=== PATIENT | male | born 1970 | race Two or more races ===

== ENCOUNTER 2020-01-21 19:19 | Emergency (ER) | payer MEDICARE ==
[~2020-01-21] VITALS: Ht 170.2 cm; Wt 95.5 kg
[2020-01-21 20:39] LABS: BASOPHILS % (AUTO) 0.7 % (0.0-2.0); EOSINOPHILS % (AUTO) 4.7 % (1.0-6.0); HEMATOCRIT 46.8 % (41-53); HEMOGLOBIN 15.8 g/dL (13.5-17.5); LYMPHOCYTES # (AUTO) 3.2 K/uL (1.0-4.8); LYMPHOCYTES % (AUTO) 35.1 % (22.0-44.0); MEAN CORPUSCULAR HEMOGLOBIN 30.4 pg (26.0-34.0); MEAN CORPUSCULAR HGB CONC 33.7 G/dL (31.0-37.0); MEAN CORPUSCULAR VOLUME 90 fL (80-100); MONOCYTES # (AUTO) 0.4 K/uL (0.1-1.0); MONOCYTES % (AUTO) 4.4 % (2.0-9.0); NEUTROPHILS # (AUTO) 5.1 K/uL (1.8-7.7); NEUTROPHILS % (AUTO) 55.1 % (40.0-70.0); PLATELET COUNT (AUTO) 404 K/uL (150-450); RED BLOOD CELL COUNT(AUTO) 5.18 MIL/uL (4.50-5.90)
[2020-01-21 20:52] LABS: ANION GAP 11 mmol/L (8-16); CALCIUM, TOTAL 9.7 mg/dL (8.8-10.5); CARBON DIOXIDE 27 mmol/L (22-29); CHLORIDE 103 mmol/L (98-107); CREATININE 0.96 mg/dL (0.60-1.30); GLOMERULAR FILTR. RATE CALC > 60 mL/min (>60); GLUCOSE,RANDOM 116 mg/dL (70-110); POTASSIUM 3.8 mmol/L (3.5-5.1); SODIUM SERUM 141 mmol/L (136-145); UREA NITROGEN, BLOOD 9 mg/dL (7-18)
[2020-01-21 20:58] LABS: ALANINE AMINOTRANSFERASE 50 U/L (12-78); ALBUMIN 4.3 g/dL (3.4-5.0); ALKALINE PHOSPHATASE 108 U/L (46-116); ASPARTATE AMINOTRANSFERASE 22 U/L (15-37); BILIRUBIN,TOTAL 0.3 mg/dL (0.1-1.0); TOTAL PROTEIN, SERUM 8.5 g/dL (6.4-8.2)
[2020-01-21 22:20] VITALS: BP 134/77
== END 2020-01-22 01:35 | disposition home or self-care (01) ==
LOC: EMS 19:22
DX: R46.89 Other symptoms and signs involving appearance and behavior (principal)
CPT/HCPCS: 36415; 80053; 85025; 99285; G0480

== ENCOUNTER 2020-07-21 09:15 | Inpatient (IN) | payer BC, MEDICARE ==
[~2020-07-21] VITALS: Ht 170.2 cm; Wt 107.5 kg
[2020-07-21] MEDS ORDERED: ZOLPIDEM TARTRATE 10 MG TABLET PO PRN (10:45)
[2020-07-21 12:18] LABS: AMPHET/METH SCREEN,URINE NEGATIVE (NEGATIVE); BARBITURATE SCREEN, URINE NEGATIVE (NEGATIVE); BENZODIAZEPINES SCREEN,URINE NEGATIVE (NEGATIVE); CANNABINOID SCREEN,URINE POSITIVE (NEGATIVE); COCAINE SCREEN,URINE NEGATIVE (NEGATIVE); METHADONE SCREEN, URINE NEGATIVE (NEGATIVE); OPIATE SCREEN,URINE NEGATIVE (NEGATIVE)
[2020-07-21 12:20] LABS: PHENCYCLIDINE SCREEN,URINE NEGATIVE (NEGATIVE)
[2020-07-21] MEDS ORDERED: ACETAMINOPHEN 325 MG TABLET PO ONE (23:45)
[2020-07-22 05:20] LABS: BASOPHILS % (AUTO) 0.5 % (0.0-2.0); HEMOGLOBIN 14.2 g/dL (13.5-17.5); LYMPHOCYTES # (AUTO) 2.1 K/uL (1.0-4.8); LYMPHOCYTES % (AUTO) 28.5 % (22.0-44.0); MEAN CORPUSCULAR HEMOGLOBIN 31.5 pg (26.0-34.0); MEAN CORPUSCULAR HGB CONC 34.6 G/dL (31.0-37.0); MEAN CORPUSCULAR VOLUME 91 fL (80-100); MONOCYTES # (AUTO) 0.4 K/uL (0.1-1.0); MONOCYTES % (AUTO) 5.6 % (2.0-9.0); NEUTROPHILS # (AUTO) 4.7 K/uL (1.8-7.7); NEUTROPHILS % (AUTO) 62.4 % (40.0-70.0); PLATELET COUNT (AUTO) 300 K/uL (150-450); RED BLOOD CELL COUNT(AUTO) 4.51 MIL/uL (4.50-5.90); RED CELL DISTRIBUTION WIDTH 13.5 % (11.5-14.5)
[2020-07-22 05:46] LABS: ALANINE AMINOTRANSFERASE 39 U/L (12-78); ALBUMIN 3.9 g/dL (3.4-5.0); ALKALINE PHOSPHATASE 71 U/L (46-116); ANION GAP 7 mmol/L (8-16); ASPARTATE AMINOTRANSFERASE 24 U/L (15-37); BILIRUBIN,TOTAL 0.6 mg/dL (0.1-1.0); CALCIUM, TOTAL 9.3 mg/dL (8.8-10.5); CARBON DIOXIDE 28 mmol/L (22-29); CHLORIDE 102 mmol/L (98-107); CREATININE 0.79 mg/dL (0.60-1.30); FREE T4 (FREE THYROXINE) 1.22 ng/dL (0.76-1.46); GLOMERULAR FILTR. RATE CALC > 60 mL/min (>60); GLUCOSE,RANDOM 132 mg/dL (70-110); POTASSIUM 3.9 mmol/L (3.5-5.1); SODIUM SERUM 137 mmol/L (136-145); THYROID STIMULATING HORMONE 1.27 uIU/mL (0.36-3.74); TOTAL PROTEIN, SERUM 7.6 g/dL (6.4-8.2); UREA NITROGEN, BLOOD 11 mg/dL (7-18)
[2020-07-22] MEDS ORDERED: LOPERAMIDE HCL 2 MG CAPSULE PO PRN (07:30)
[2020-07-22] MEDS ORDERED: CloNIDine HCL 0.1 MG TABLET PO PRN (07:30)
[2020-07-22] MEDS ORDERED: ALBUTEROL SULFATE HFA 90 MCG/PUFF 8 GM INHALER IH PRN (07:30)
[2020-07-22] MEDS ORDERED: PETROLATUM,WHITE 28 GM JELLY TP PRN (07:30)
[2020-07-22] MEDS ORDERED: ONDANSETRON HCL 4 MG TABLET PO PRN (07:30)
[2020-07-22] MEDS ORDERED: BENZOCAINE/MENTHOL LOZENGE PO PRN (07:30)
[2020-07-22] MEDS ORDERED: BACITRACIN 28 GM OINTMENT TP PRN (07:30)
[2020-07-22] MEDS ORDERED: MAGNESIUM HYDROXIDE SUSPENSION 30 ML UDCUP PO PRN (07:30)
[2020-07-22] MEDS ORDERED: CYCLOBENZAPRINE HCL 10 MG TABLET PO ONE (08:00)
[2020-07-22] MEDS ORDERED: LIDOCAINE 5% TRANSDERMAL PATCH TD ONE (08:00)
[2020-07-22 16:29] VITALS: BP 143/92
[2020-07-22] MEDS: LORazepam 2 MG TABLET PO PRN ×2 (16:44→22:04)
[2020-07-22] MEDS: HALOPERIDOL 5 MG TABLET PO PRN ×2 (16:44→22:04)
[2020-07-23 02:22] VITALS: BP 133/89
[2020-07-23] MEDS: IBUPROFEN 600 MG TABLET PO PRN ×2 (08:10→09:01)
[2020-07-23 08:12] VITALS: BP 112/73
[2020-07-23] MEDS: LORazepam 2 MG TABLET PO PRN ×3 (08:16→20:43)
[2020-07-23 16:06] VITALS: BP 118/66
[2020-07-23 16:33] VITALS: BP 118/66
[2020-07-23] MEDS: ACETAMINOPHEN 325 MG TABLET PO PRN ×2 (16:33→20:42)
[2020-07-23] MEDS: DOCUSATE SODIUM 100 MG CAPSULE PO PRN (20:10)
[2020-07-23 20:42] VITALS: BP 122/74
[2020-07-24] MEDS: CYCLOBENZAPRINE HCL 10 MG TABLET PO PRN ×2 (04:24→13:27)
[2020-07-24] MEDS: IBUPROFEN 600 MG TABLET PO PRN ×4 (04:24→16:59)
[2020-07-24 04:27] VITALS: BP 142/89
[2020-07-24] MEDS: LIDOCAINE 5% 36 GM OINTMENT TP SCH (08:12)
[2020-07-24] MEDS: RisperiDONE 1 MG TABLET PO SCH ×2 (08:12→16:59)
[2020-07-24] MEDS: LORazepam 2 MG TABLET PO PRN ×3 (08:13→18:26)
[2020-07-24] MEDS: DOCUSATE SODIUM 100 MG CAPSULE PO PRN (08:37)
[2020-07-24 08:53] VITALS: BP 143/80
[2020-07-24 16:09] VITALS: BP 141/69
[2020-07-25 00:08] VITALS: BP 134/87
[2020-07-25] MEDS: CYCLOBENZAPRINE HCL 10 MG TABLET PO PRN ×2 (00:13→18:53)
[2020-07-25] MEDS: IBUPROFEN 600 MG TABLET PO PRN ×2 (00:14→06:02)
[2020-07-25] MEDS: LORazepam 2 MG TABLET PO PRN ×4 (06:02→20:22)
[2020-07-25 08:08] VITALS: BP 124/88
[2020-07-25] MEDS: LIDOCAINE 5% 36 GM OINTMENT TP SCH (08:15)
[2020-07-25] MEDS: RisperiDONE 1 MG TABLET PO SCH ×2 (08:15→15:53)
[2020-07-25] MEDS: DOCUSATE SODIUM 100 MG CAPSULE PO PRN (10:14)
[2020-07-25] MEDS: MAG HYDROX/AL HYDROX/SIMETH ES 30 ML SUSPENSION UDCUP PO PRN ×2 (10:53→18:51)
[2020-07-25] MEDS: CALCIUM POLYCARBOPHIL 625 MG TABLET PO SCH (15:53)
[2020-07-25 16:09] VITALS: BP 132/82
[2020-07-25] MEDS: NICOTINE POLACRILEX 2 MG LOZENGE PO PRN (17:05)
[2020-07-26] MEDS: MAG HYDROX/AL HYDROX/SIMETH ES 30 ML SUSPENSION UDCUP PO PRN ×2 (03:01→13:34)
[2020-07-26] MEDS: LORazepam 2 MG TABLET PO PRN ×3 (03:01→20:52)
[2020-07-26] MEDS: ACETAMINOPHEN 325 MG TABLET PO PRN (03:01)
[2020-07-26 03:29] VITALS: BP 132/86
[2020-07-26] MEDS: CYCLOBENZAPRINE HCL 10 MG TABLET PO PRN ×2 (07:09→13:35)
[2020-07-26 08:12] VITALS: BP 139/91
[2020-07-26] MEDS: CALCIUM POLYCARBOPHIL 625 MG TABLET PO SCH ×2 (08:23→16:20)
[2020-07-26] MEDS: LIDOCAINE 5% 36 GM OINTMENT TP SCH (08:23)
[2020-07-26] MEDS: RisperiDONE 1 MG TABLET PO SCH ×2 (08:23→16:20)
[2020-07-26] MEDS: NICOTINE POLACRILEX 2 MG LOZENGE PO PRN ×2 (09:05→16:19)
[2020-07-26 16:06] VITALS: BP 131/70
[2020-07-26] MEDS: RisperiDONE 2 MG TABLET PO SCH (16:39)
[2020-07-26] MEDS ORDERED: RisperiDONE MICROSPHERES 50 MG/2 ML SYRINGE IM SCH (20:45)
[2020-07-26] MEDS: HALOPERIDOL 5 MG TABLET PO PRN (20:52)
[2020-07-27] MEDS: CYCLOBENZAPRINE HCL 10 MG TABLET PO PRN ×2 (01:42→09:05)
[2020-07-27] MEDS: LORazepam 2 MG TABLET PO PRN ×3 (02:46→16:27)
[2020-07-27] MEDS: MAG HYDROX/AL HYDROX/SIMETH ES 30 ML SUSPENSION UDCUP PO PRN (07:14)
[2020-07-27] MEDS: RisperiDONE 2 MG TABLET PO SCH ×2 (08:31→16:26)
[2020-07-27] MEDS: CALCIUM POLYCARBOPHIL 625 MG TABLET PO SCH ×2 (08:31→16:26)
[2020-07-27] MEDS: LIDOCAINE 5% 36 GM OINTMENT TP SCH (08:32)
[2020-07-27 08:34] VITALS: BP 134/84
[2020-07-27] MEDS: NICOTINE POLACRILEX 2 MG LOZENGE PO PRN (10:12)
[2020-07-27 16:06] VITALS: BP 112/73
[2020-07-28 01:05] VITALS: BP 119/87
[2020-07-28] MEDS: ACETAMINOPHEN 325 MG TABLET PO PRN ×2 (01:11→16:40)
[2020-07-28] MEDS: CYCLOBENZAPRINE HCL 10 MG TABLET PO PRN ×2 (01:11→16:40)
[2020-07-28] MEDS: NICOTINE POLACRILEX 2 MG LOZENGE PO PRN ×3 (01:40→18:30)
[2020-07-28] MEDS: LORazepam 2 MG TABLET PO PRN ×2 (06:29→10:35)
[2020-07-28] MEDS: LIDOCAINE 5% 36 GM OINTMENT TP SCH (08:11)
[2020-07-28] MEDS: CALCIUM POLYCARBOPHIL 625 MG TABLET PO SCH ×2 (08:11→16:42)
[2020-07-28] MEDS: RisperiDONE 2 MG TABLET PO SCH ×2 (08:11→16:42)
[2020-07-28 08:26] VITALS: BP 143/9
[2020-07-28 16:09] VITALS: BP 134/71
[2020-07-28] MEDS: OMEPRAZOLE 20 MG CAPSULE PO PRN (18:01)
[2020-07-29 00:46] VITALS: BP 135/98
[2020-07-29] MEDS: LORazepam 2 MG TABLET PO PRN ×4 (00:51→18:06)
[2020-07-29] MEDS: OMEPRAZOLE 20 MG CAPSULE PO PRN (05:00)
[2020-07-29] MEDS: CYCLOBENZAPRINE HCL 10 MG TABLET PO PRN ×2 (06:08→17:14)
[2020-07-29 08:23] VITALS: BP 121/87
[2020-07-29] MEDS: LIDOCAINE 5% 36 GM OINTMENT TP SCH (08:28)
[2020-07-29] MEDS: CALCIUM POLYCARBOPHIL 625 MG TABLET PO SCH ×2 (08:28→17:13)
[2020-07-29] MEDS: RisperiDONE 2 MG TABLET PO SCH ×2 (08:28→17:13)
[2020-07-29] MEDS: NICOTINE POLACRILEX 2 MG LOZENGE PO PRN ×3 (09:36→18:06)
[2020-07-29 16:09] VITALS: BP 131/87
[2020-07-29] MEDS: ACETAMINOPHEN 325 MG TABLET PO PRN (18:06)
[2020-07-30 02:35] VITALS: BP 124/79
[2020-07-30] MEDS: LORazepam 2 MG TABLET PO PRN ×3 (02:36→16:38)
[2020-07-30] MEDS: CYCLOBENZAPRINE HCL 10 MG TABLET PO PRN ×2 (06:34→17:48)
[2020-07-30] MEDS: NICOTINE POLACRILEX 2 MG LOZENGE PO PRN ×3 (06:42→15:00)
[2020-07-30] MEDS: OMEPRAZOLE 20 MG CAPSULE PO PRN (07:02)
[2020-07-30 08:21] VITALS: BP 137/89
[2020-07-30] MEDS: RisperiDONE 2 MG TABLET PO SCH ×2 (08:29→16:38)
[2020-07-30] MEDS: CALCIUM POLYCARBOPHIL 625 MG TABLET PO SCH ×2 (08:29→16:38)
[2020-07-30] MEDS: LIDOCAINE 5% 36 GM OINTMENT TP SCH (08:29)
[2020-07-30] MEDS: HALOPERIDOL 5 MG TABLET PO PRN (12:22)
[2020-07-30 16:19] VITALS: BP 138/96
[2020-07-31] MEDS: NICOTINE POLACRILEX 2 MG LOZENGE PO PRN (01:50)
[2020-07-31] MEDS: LORazepam 2 MG TABLET PO PRN ×3 (01:50→14:11)
[2020-07-31] MEDS: CYCLOBENZAPRINE HCL 10 MG TABLET PO PRN ×2 (05:24→14:10)
[2020-07-31] MEDS: OMEPRAZOLE 20 MG CAPSULE PO PRN (06:02)
[2020-07-31 08:17] VITALS: BP 129/88
[2020-07-31] MEDS: RisperiDONE 2 MG TABLET PO SCH ×2 (08:45→16:58)
[2020-07-31] MEDS: CALCIUM POLYCARBOPHIL 625 MG TABLET PO SCH ×2 (08:45→16:58)
[2020-07-31] MEDS: LIDOCAINE 5% 36 GM OINTMENT TP SCH (10:20)
[2020-07-31] MEDS: MAG HYDROX/AL HYDROX/SIMETH ES 30 ML SUSPENSION UDCUP PO PRN ×2 (10:23→17:30)
[2020-07-31 14:11] VITALS: BP 126/86
[2020-07-31] MEDS: ACETAMINOPHEN 325 MG TABLET PO PRN (14:11)
[2020-07-31 16:17] VITALS: BP 131/96
[2020-08-01] MEDS: LORazepam 2 MG TABLET PO PRN ×3 (03:27→14:48)
[2020-08-01] MEDS: CYCLOBENZAPRINE HCL 10 MG TABLET PO PRN ×2 (03:28→10:28)
[2020-08-01 07:14] VITALS: BP 135/89
[2020-08-01] MEDS: MAG HYDROX/AL HYDROX/SIMETH ES 30 ML SUSPENSION UDCUP PO PRN ×2 (07:14→17:26)
[2020-08-01 08:33] VITALS: BP 126/66
[2020-08-01] MEDS: LIDOCAINE 5% 36 GM OINTMENT TP SCH (09:14)
[2020-08-01] MEDS: CALCIUM POLYCARBOPHIL 625 MG TABLET PO SCH ×2 (09:14→16:05)
[2020-08-01] MEDS: RisperiDONE 2 MG TABLET PO SCH ×2 (10:05→16:05)
[2020-08-01] MEDS: ACETAMINOPHEN 325 MG TABLET PO PRN (10:07)
[2020-08-01] MEDS: PANTOPRAZOLE SODIUM 40 MG DR TABLET PO PRN (10:23)
[2020-08-01] MEDS: NICOTINE POLACRILEX 2 MG LOZENGE PO PRN (14:48)
[2020-08-01 16:10] VITALS: BP 136/91
[2020-08-02] MEDS: PANTOPRAZOLE SODIUM 40 MG DR TABLET PO PRN (03:25)
[2020-08-02] MEDS: ACETAMINOPHEN 325 MG TABLET PO PRN ×2 (03:25→08:42)
[2020-08-02] MEDS: LORazepam 2 MG TABLET PO PRN ×2 (03:26→08:42)
[2020-08-02 03:31] VITALS: BP 132/86
[2020-08-02] MEDS: CALCIUM POLYCARBOPHIL 625 MG TABLET PO SCH (08:41)
[2020-08-02] MEDS: RisperiDONE 2 MG TABLET PO SCH (08:42)
[2020-08-02] MEDS: LIDOCAINE 5% 36 GM OINTMENT TP SCH (08:59)
[2020-08-02 09:00] VITALS: BP 126/63
[2020-08-02] MEDS: NICOTINE POLACRILEX 2 MG LOZENGE PO PRN (09:00)
[2020-08-02] MEDS: MAG HYDROX/AL HYDROX/SIMETH ES 30 ML SUSPENSION UDCUP PO PRN (12:22)
[2020-08-02] MEDS ORDERED: RISPC50 IM (14:24)
[2020-08-02] MEDS ORDERED: RISP2TAB23 PO (14:24)
== END 2020-08-02 15:30 | disposition home or self-care (01) | DRG 885 ==
LOC: EMS 09:16 → B3A 07-22 14:16
PROVIDERS: ADMIT Psychiatry & Neurology Psychiatry; ATTEND Psychiatry & Neurology Psychiatry
DX: F20.0 Paranoid schizophrenia (principal); F31.9 Bipolar disorder, unspecified; Z59.0 Homelessness; Z20.828 Contact with and (suspected) exposure to other viral communicable diseases; Z79.899 Other long term (current) drug therapy
CPT/HCPCS: 71101; 84439; 84443; 87426; J2794